=== PATIENT | female | born 1985 ===

== ENCOUNTER 2016-10-30 00:29 | Emergency (ER) | payer OTHER ==
[2016-10-30 00:49] VITALS: BP 117/75; PULSE 101; RESP 17; TEMP 98; O2SAT 100
--- NOTE | 2016-10-30 01:26 | ED PDOC ---
HPI: Eye Injury/Pain Time Seen by Provider: 10/30/16 00:49 Chief Complaint (Nursing): Eye Problem Chief Complaint (Provider): left eye pain History Per: Patient History/Exam Limitations: no limitations Onset/Duration Of Symptoms: Days (1) Current Symptoms Are (Timing): Still Present Quality: Sharp Associated Symptoms: FB Sensation, Discharge From Eye Additional History Per: Patient Additional Complaint(s): 31 y/o female presents with left eye pain/irritation x 24 hours. Patient states she was wearing her contacts (6 month-use, opened in April) yesterday and noted discomfort towards the end of the day, after taking them out she noted foreign body sensation and increasing irritation. Associated clear drainage, photophobia. Denies headache, swelling around eye. Patient is 32 weeks gestation. Past Medical History Reviewed: Historical Data, Nursing Documentation, Vital Signs Vital Signs: Last Vital Signs Temp 98.0 F 10/30/16 00:35 Pulse 101 H 10/30/16 00:35 Resp 17 10/30/16 00:35 BP 117/75 10/30/16 00:35 Pulse Ox 100 10/30/16 00:35 - Medical History PMH: No Chronic Diseases - Surgical History Surgical History: No Surg Hx - Family History Family History: States: No Known Family Hx - Living Arrangements Living Arrangements: With Family - Home Medications Home Medications: Ambulatory Orders Medication Instructions Recorded Tobramycin 0.3% [Tobrex 0.3% Ophth 2 drop OP Q6 #1 bottle 10/30/16 Soln] - Allergies Allergies/Adverse Reactions: Allergies Allergy/AdvReac Type Severity Reaction Status Date / Time No Known Allergies Allergy Verified 10/30/16 00:48 Review of Systems ROS Statement: Except As Marked, All Systems Reviewed And Found Negative Eyes: Positive for: Pain (left), Redness (left) Physical Exam - Reviewed Nursing Documentation Reviewed: Yes Vital Signs Reviewed: Yes - Physical Exam Appears: Positive for: Well, Non-toxic, No Acute Distress Head Exam: Positive for: ATRAUMATIC, NORMAL INSPECTION, NORMOCEPHALIC Eye Exam: Positive for: Normal appearance, EOMI, PERRL, Conjunctival injection ( left with + tearing). Negative for: Periorbital swelling, Periorbital tenderness - ECG O2 Sat by Pulse Oximetry: 100 - Progress ED Course And Treament: left eye anesthesized with 2 drops tetracaine; fluro stain reveals corneal uptake. Patient educated on findings, advised to throw out contacts and use glasses. Rx Tobramycin provided. Follow up with opthalmologist today. Return to ED for worsening/concerning symptoms. Disposition - Clinical Impression Clinical Impression: Corneal abrasion - Patient ED Disposition Is Patient to be Admitted: No Counseled Patient/Family Regarding: Diagnosis, Need For Followup, Rx Given - Disposition Referrals: Sam Duff MD [Staff Provider] - Disposition: Routine/Home Disposition Time: 01:36 Condition: STABLE Additional Instructions: Follow up with rn ent today. Take medication as directed. Throw out contacts. Use glasses. Return to ED for worsening/concerning symptoms. Prescriptions: Tobramycin 0.3% [Tobrex 0.3% Ophth Soln] 2 drop OP Q6 #1 bottle Instructions: Corneal Abrasion (ED) Forms: [facility] [facility] ([place]ese)
== END 2016-10-30 01:55 | disposition home or self-care (01) ==
LOC: H.ER 00:29
DX: H18.829 Corneal disorder due to contact lens, unspecified eye (principal)